=== PATIENT | male | born 1960 | race Caucasian/White ===

== ENCOUNTER → 2019-11-23 09:33 | Outpatient (BNVA) | payer MEDICARE, MEDICAID, SELFPAY | PROVIDERS: Family Provider Internal Medicine; Visit Provider Nurse Practitioner Psychiatric/Mental Health | DX: G30.9 Alzheimer's disease, unspecified (principal); F02.81 Dementia in other diseases classified elsewhere, unspecified severity, with behavioral disturbance; F33.1 Major depressive disorder, recurrent, moderate | CPT/HCPCS: 99214 ==

== ENCOUNTER → 2020-03-27 07:38 | Outpatient (BNVA) | payer MEDICARE, MEDICAID, SELFPAY | PROVIDERS: Family Provider Internal Medicine; Visit Provider Nurse Practitioner Psychiatric/Mental Health | DX: F33.1 Major depressive disorder, recurrent, moderate (principal); G30.9 Alzheimer's disease, unspecified; F02.81 Dementia in other diseases classified elsewhere, unspecified severity, with behavioral disturbance | CPT/HCPCS: 99214 ==

== ENCOUNTER → 2020-05-02 08:28 | Outpatient (BNVA) | payer MEDICAID, SELFPAY | PROVIDERS: Family Provider Internal Medicine; Visit Provider Nurse Practitioner Psychiatric/Mental Health | DX: F02.81 Dementia in other diseases classified elsewhere, unspecified severity, with behavioral disturbance (principal); F33.1 Major depressive disorder, recurrent, moderate; G30.9 Alzheimer's disease, unspecified | CPT/HCPCS: 99214 ==

== ENCOUNTER 2020-05-20 18:20 | Inpatient (IN) | payer MEDICARE, MEDICAID, SELFPAY ==
[2020-05-20 18:24] VITALS: BP 137/87; PULSE 86; RESP 20; TEMP 36.8; O2SAT 98; BMI 34.4
[2020-05-20 19:42] LABS: Basophils # 0.1 10^3/uL (0.0-0.1); Basophils % 0.6 %; Eosinophils # 0.3 10^3/uL (0.0-0.8); Eosinophils % 2.1 %; Hematocrit 47.9 % (42.0-52.0); Hemoglobin 15.6 g/dL (11.7-16.6); Lymphocytes # 2.2 10^3/uL (0.8-4.8); Lymphocytes % 18.3 %; Mean Corpuscular HGB Conc 32.6 g/dL (30.0-36.0); Mean Corpuscular Hemoglobin 32.2 pg (28.0-34.0); Mean Platelet Volume 8.7 fL (7.4-10.4); Monocytes # 0.9 10^3/uL (0.2-0.9); Monocytes % 7.5 %; Neutrophils % 69.8 %; Nucleated Red Blood Cells % 0 %; Platelet Count 347 10^3/cmm (130-400); Red Blood Count 4.84 10^6/uL (4.1-5.3); Red Cell Distribution Width 13.5 % (12.1-15.1); White Blood Count 12.2 10^3/uL (4.0-10.0)
[2020-05-20 20:10] LABS: Alanine Aminotransferase 36 U/L (0-41); Albumin Level 3.9 g/dL (3.5-5.2); Alkaline Phosphatase 83 IU/L (40-130); Anion Gap 13.3 (5-19); Aspartate Amino Transferase 23 U/L (0-40); Blood Urea Nitrogen 17 mg/dL (8-23); Calcium 9.5 mg/dL (8.5-10.5); Carbon Dioxide 29 mmol/L (22-29); Chloride 100 mmol/L (98-107); Creatinine Clr Calc Pharmacy 71.8394; Globulin 3.8 g/dL (1.3-4.6); Glomerular Filtration Rate 61.3 mL/min (90-130); Glucose 109 mg/dL (65-115); Osmolality Calculated 283 mOsm/kg (285-295); Potassium 4.3 mmol/L (3.5-5.1); Sodium 138 mmol/L (136-145); Thyroid Stimulating Hormone 1.17 uIU/mL (0.27-4.20); Total Bilirubin 0.3 mg/dL (0.15-1.2); Total Protein 7.7 g/dL (6.6-8.7)
[2020-05-20 20:12] LABS: Acetaminophen < 5.0 ug/mL (10-30); Alcohol Level < 10 mg/dL (0-10); Salicylate < 0.3 mg/dL (3-10)
[2020-05-20 20:33] LABS: Amphetamines Screen Urine Negative (Negative); Barbiturates Screen Urine Negative (Negative); Benzodiazepines Screen Urine Positive (Negative); Cocaine Screen Urine Negative (Negative); Opiate Screen Urine Negative (Negative); PCP Screen Urine Negative (Negative); THC Screen Urine Negative (Negative)
[2020-05-20 20:35] LABS: Add Urine Microscopic? YES; Bilirubin Urine 1+ (NEGATIVE); Blood Urine Neg (Negative); Glucose Urine UA Norm (Normal); Ketones Urine Negative (Negative); Leukocyte Esterase Urine Trace (Negative); Nitrate Urine Negative (Negative); Protein Urine Neg (Negative); Urine Appearance Clear (CLEAR); Urine Color Yellow (Yellow); Urobilinogen Urine Norm (Negative); pH Urine 5 (5-7)
[2020-05-20 20:36] LABS: Add Urine Culture? No; Bacteria Urine TRACE; Hyaline Casts Urine 0-4; Mucus Urine TRACE; RBC Urine 0-4 /hpf (0-2); Squamous Epithelial Cell Urine 0-4 (0-5)
[2020-05-20] MEDS: LORazepam 2 mg Tablet PO (22:05)
[2020-05-20 22:54] VITALS: BP 136/72; PULSE 82; RESP 18; O2SAT 97
[2020-05-20 23:08] VITALS: BP 154/102; PULSE 75; RESP 21; TEMP 37; O2SAT 99
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
[2020-05-21] MEDS: lamoTRIgine 100 mg Tablet 200 MG PO ×2 (00:13→20:55)
[2020-05-21] MEDS: metoprolol tartrate 50 mg Tablet PO ×2 (00:14→20:55)
[2020-05-21] MEDS: OLANZapine 5 mg ODT PO (02:36)
--- NOTE | 2020-05-21 02:38 | PC.NURSE ---
Addendum entered by Claudia Shepard LPN 05/21/20 03:26: PRN ZYPREXA ZYDIS PT STATES MEDICATION WAS NOT EFFECTIVE. WILL CONTINUE TO MONITOR PATIENT. Original Note: PRN ZYPREXA ZYDIS ADMINISTERED ZYPREXA ZYDIS 5MG SUBLINGUAL FOR INCREASING AGITATION/ANXIETY. WILL MONITOR FOR MEDICATION EFFECTIVENESS.
[2020-05-21 06:18] VITALS: BP 108/72; PULSE 65; RESP 20; TEMP 36.5; O2SAT 99
[2020-05-21] MEDS: lisinopril 20 mg Tablet PO (08:28)
[2020-05-21] MEDS: calcium carbonate 500 mg Chew Tablet PO (08:28)
[2020-05-21] MEDS: hydroCHLOROthiazide 25 mg Tablet 12.5 MG PO (08:28)
[2020-05-21] MEDS: docusate sodium 100 mg Capsule PO (08:28)
[2020-05-21] MEDS: donepezil 5 MG Tablet PO (08:29)
[2020-05-21] MEDS: pantoprazole DR 40 mg Tablet PO (08:29)
[2020-05-21] MEDS: buPROPion XL (24 HR) 300 mg Tablet PO (08:29)
[2020-05-21] MEDS: cholecalciferol (vitamin D3) 1,000 unit Tablet 2000 UNIT PO (08:29)
[2020-05-21] MEDS: memantine 5 mg tablet 10 MG PO ×2 (08:29→16:54)
[2020-05-21] MEDS: lamoTRIgine 100 mg Tablet 150 MG PO (08:29)
[2020-05-21 09:49] VITALS: PULSE 74; O2SAT 97
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
[2020-05-21 14:00] VITALS: BP 115/68; PULSE 71; RESP 18; TEMP 37.2
[2020-05-21] MEDS: SUMAtriptan 25 mg Tablet 50 MG PO (18:43)
[2020-05-21 22:00] VITALS: BP 121/71; PULSE 70; RESP 18; TEMP 36.7; O2SAT 100
[2020-05-22 06:00] VITALS: BP 110/65; PULSE 65; RESP 16; TEMP 36.6; O2SAT 99
[2020-05-22 07:52] VITALS: PULSE 68; O2SAT 98
[2020-05-22] MEDS: memantine 5 mg tablet 10 MG PO ×2 (09:22→17:11)
[2020-05-22] MEDS: buPROPion XL (24 HR) 300 mg Tablet PO (09:23)
[2020-05-22] MEDS: lamoTRIgine 100 mg Tablet 150 MG PO (09:23)
[2020-05-22] MEDS: pantoprazole DR 40 mg Tablet PO (09:23)
[2020-05-22] MEDS: docusate sodium 100 mg Capsule PO (09:23)
[2020-05-22] MEDS: donepezil 5 MG Tablet PO (09:23)
[2020-05-22] MEDS: lisinopril 20 mg Tablet PO (09:23)
[2020-05-22] MEDS: cholecalciferol (vitamin D3) 1,000 unit Tablet 2000 UNIT PO (09:24)
[2020-05-22] MEDS: hydroCHLOROthiazide 25 mg Tablet 12.5 MG PO (09:24)
[2020-05-22] MEDS: nicotine 21 mg Patch 1 PATCH TRANSDERMA (09:24)
[2020-05-22 14:00] VITALS: BP 103/67; PULSE 80; RESP 20; TEMP 37.3; O2SAT 98
--- NOTE | 2020-05-22 15:56 | P.PN_ITS ---
Subjective NPU Subjective: Interval history: The patient's mood is improved today. He and his may effectuate a rapprochement, at the worst, a detente such as that extant between [place] and [facility]. He rambles on, unable to remember my name or that of the hospital. His mood is upbeat and he is neither suicidal nor homicidal. He ponders when he will be ready to face the slings and arrows of outrageous fortune which await him at home. Medications: Reviewed: Yes Medication Review Details: Current Medications Acetaminophen (Tylenol) 650 mg PO Q4H PRN PRN Reason: MILD PAIN Albuterol Sulfate (Ventolin) 2 puff INHALATION Q6H PRN PRN Reason: Wheezing Alprazolam (Xanax) 1 mg PO TID [facility] Last Admin: 05/22/20 14:52 Dose: 1 mg Documented by: Benztropine Mesylate (Cogentin) 1 mg PO BID PRN PRN Reason: Mild Extrapyramidal symptoms Bupropion HCl (Wellbutrin Xl (24 Hr)) 300 mg PO DAILY [facility] Last Admin: 05/22/20 09:23 Dose: 300 mg Documented by: Calcium Carbonate (Tums) 500 mg PO DAILY [facility] Last Admin: 05/22/20 09:35 Dose: Not Given Documented by: Camphor/Menthol/Phenol (Blistex) 1 applic TOPICAL Q1H PRN PRN Reason: DRYNESS Diphenhydramine HCl (Benadryl) 50 mg IM ONCE PRN PRN Reason: Severe Extrapyramidal Symptoms Diphenhydramine HCl (Benadryl) 50 mg IM Q4H PRN PRN Reason: Severe Aggression Docusate Sodium (Colace) 100 mg PO DAILY [facility] Last Admin: 05/22/20 09:23 Dose: 100 mg Documented by: Donepezil HCl (Aricept) 5 mg PO DAILY [facility] Last Admin: 05/22/20 09:23 Dose: 5 mg Documented by: Haloperidol (Haldol) 5 mg PO Q4H PRN PRN Reason: AGITATION Haloperidol Lactate (Haldol Inj) 5 mg IM Q4H PRN PRN Reason: Severe Aggression Hydrochlorothiazide (Hctz) 12.5 mg PO DAILY [facility] Last Admin: 05/22/20 09:24 Dose: 12.5 mg Documented by: Hydroxyzine Pamoate (Vistaril) 50 mg PO Q6H PRN PRN Reason: ANXIETY Lamotrigine (Lamictal) 150 mg PO DAILY [facility] Last Admin: 05/22/20 09:23 Dose: 150 mg Documented by: Lamotrigine (Lamictal) 200 mg PO BEDTIME [facility] Last Admin: 05/21/20 20:55 Dose: 200 mg Documented by: Lisinopril (Prinivil) 20 mg PO DAILY [facility] Last Admin: 05/22/20 09:23 Dose: 20 mg Documented by: Loperamide HCl (Imodium Capsule) 2 mg PO Q6H PRN PRN Reason: DIARRHEA Lorazepam (Ativan) 2 mg IM Q4H PRN PRN Reason: Severe Aggression Memantine (Namenda) 10 mg PO BID [facility] Last Admin: 05/22/20 09:22 Dose: 10 mg Documented by: Metoprolol Tartrate (Lopressor) 50 mg PO BEDTIME [facility] Last Admin: 05/21/20 20:55 Dose: 50 mg Documented by: Nicotine (Nicoderm 21 Mg Patch) 1 patch TRANSDERMA DAILY PRN PRN Reason: NICOTINE WITHDRAWAL Last Admin: 05/22/20 09:24 Dose: 1 patch Documented by: Nicotine Polacrilex (Nicorette) 2 mg BUCCAL Q2H PRN PRN Reason: NICOTINE WITHDRAWAL Non-Formulary Medication (Nxhghtktlfx-Jdgjwhngm-Abhcsquz [Trelegy Ellipta]) 1 inh INHALATION DAILY [facility] Last Admin: 05/22/20 09:36 Dose: Not Given Documented by: Non-Formulary Medication (Zaleplon) 20 mg PO .QHS [facility] Olanzapine (Zyprexa Zydis) 5 mg PO Q4H PRN PRN Reason: Agitation/Psychosis Last Admin: 05/21/20 02:36 Dose: 5 mg Documented by: Ondansetron HCl (Zofran) 4 mg PO Q6H PRN PRN Reason: NAUSEA AND VOMITING Pantoprazole Sodium (Protonix) 40 mg PO DAILY [facility] Last Admin: 05/22/20 09:23 Dose: 40 mg Documented by: Rivastigmine Tartrate (Exelon 9.5 Mg Patch) 1 patch TRANSDERMA DAILY [facility] Last Admin: 05/22/20 09:24 Dose: 1 patch Documented by: Sumatriptan Succinate (Imitrex) 50 mg PO Q2H PRN PRN Reason: Migraine Headache Last Admin: 05/21/20 18:43 Dose: 50 mg Documented by: Trazodone HCl (Desyrel) 50 mg PO BEDTIME PRN PRN Reason: SLEEP Vitamin D (Vitamin D3) 2,000 unit PO DAILY [facility] Last Admin: 05/22/20 09:24 Dose: 2,000 unit Documented by: Mental Status Exam MSE Comments: This is a 60-year-old male who presents at his stated age. He is neat clean and of good body habitus. Mood is much more comfortable and cheerful and affect is appropriate. Thought processes tend to be somewhat confabulatory. The patient frankly admits he cannot remember things over a long period of time. He still cannot remember things (e. g., [facility], [facility], etc.) over a short period of time. Serial sevens remain out of the question. The patient still does not have sufficient insight and judgment for safety at the moment. He is currently on one-to-one because he is an oxygen line for his COPD. The patient denies suicidal or homicidal ideation, plan or intent. He agrees that the firearms need to leave the house. His son, dock guard, will assume responsibility for this. It might be a good thing to have the son assume guardianship of his father. Vitals/I&O/Wt Last Vital Signs Temp 99.1 F 05/22/20 14:00 Pulse 80 05/22/20 14:00 Resp 20 H 05/22/20 14:00 BP 103/67 05/22/20 14:00 Pulse Ox 98 05/22/20 14:00 Weight last 48 hrs Weight 196 lb 14.4 oz Weight 220 lb Data NPU : 05/20/20 19:37 05/20/20 19:37 Involuntary Hold Information 96 Hour Hold: 96 Hour Hold Start Date: 05/20/20 96 Hour Hold Start Time: 20:25 96 Hour Hold Ending Date: 05/29/20 96 Hour Hold Ending Time: 00:01 Attestations NPU Medical Necessity Statement*: I anticipate 5-7 midnights additional hospital stay. Time Spent in Patient Care: 16 - 35 minutes (>than 50% of time spent in counselling and/or direct pt care on unit) . Coding Level of Care Code Acute Public Health Social Worker for Chg Fwd
[2020-05-22] MEDS: lamoTRIgine 100 mg Tablet 200 MG PO (20:28)
[2020-05-22] MEDS: metoprolol tartrate 50 mg Tablet PO (20:29)
[2020-05-22 21:03] VITALS: BP 122/75; PULSE 92; RESP 17; TEMP 36.9; O2SAT 97
[2020-05-23] MEDS: SUMAtriptan 25 mg Tablet 50 MG PO ×2 (01:30→15:38)
[2020-05-23] MEDS: hyDROXYzine 25 mg Capsule 50 MG PO ×2 (01:30→21:37)
[2020-05-23] MEDS: trazodone 50 mg Tablet PO ×2 (01:31→21:38)
[2020-05-23 06:00] VITALS: BP 103/58; PULSE 69; RESP 14; TEMP 36.2; O2SAT 99
[2020-05-23 09:38] VITALS: PULSE 85; O2SAT 98
[2020-05-23] MEDS: docusate sodium 100 mg Capsule PO (09:48)
[2020-05-23] MEDS: memantine 5 mg tablet 10 MG PO ×2 (09:48→17:45)
[2020-05-23] MEDS: cholecalciferol (vitamin D3) 1,000 unit Tablet 2000 UNIT PO (09:48)
[2020-05-23] MEDS: buPROPion XL (24 HR) 300 mg Tablet PO (09:48)
[2020-05-23] MEDS: lamoTRIgine 100 mg Tablet 150 MG PO (09:49)
[2020-05-23] MEDS: hydroCHLOROthiazide 25 mg Tablet 12.5 MG PO (09:49)
[2020-05-23] MEDS: pantoprazole DR 40 mg Tablet PO (09:49)
[2020-05-23] MEDS: donepezil 5 MG Tablet PO (09:49)
[2020-05-23] MEDS: lisinopril 20 mg Tablet PO (09:49)
[2020-05-23 13:52] VITALS: BP 91/54; PULSE 72; RESP 18; TEMP 36.7; O2SAT 99
[2020-05-23 20:39] VITALS: PULSE 80; O2SAT 97
[2020-05-23 21:13] VITALS: BP 93/65; PULSE 82; RESP 20; TEMP 36.7; O2SAT 99
[2020-05-23] MEDS: lamoTRIgine 100 mg Tablet 200 MG PO (21:37)
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
[2020-05-23] MEDS: metoprolol tartrate 50 mg Tablet PO (21:38)
--- NOTE | 2020-05-23 21:38 | PC.NURSE ---
Continuous oxygen at 3 liter per nasal cannula.
[2020-05-24 06:00] VITALS: BP 112/68; PULSE 70; RESP 18; TEMP 36.8; O2SAT 96
[2020-05-24] MEDS: cholecalciferol (vitamin D3) 1,000 unit Tablet 2000 UNIT PO (09:00)
[2020-05-24] MEDS: docusate sodium 100 mg Capsule PO (09:01)
[2020-05-24] MEDS: buPROPion XL (24 HR) 300 mg Tablet PO (09:02)
[2020-05-24] MEDS: lisinopril 20 mg Tablet PO (09:02)
[2020-05-24] MEDS: pantoprazole DR 40 mg Tablet PO (09:02)
[2020-05-24] MEDS: hydroCHLOROthiazide 25 mg Tablet 12.5 MG PO (09:02)
[2020-05-24] MEDS: memantine 5 mg tablet 10 MG PO ×2 (09:03→18:08)
[2020-05-24] MEDS: lamoTRIgine 100 mg Tablet 150 MG PO (09:03)
[2020-05-24] MEDS: donepezil 5 MG Tablet PO (09:03)
[2020-05-24 10:26] VITALS: PULSE 87; O2SAT 96
[2020-05-24 14:00] VITALS: BP 85/57; PULSE 84; RESP 18; TEMP 37; O2SAT 97
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
[2020-05-24 20:04] VITALS: BP 89/58; PULSE 88; RESP 14; TEMP 36.7; O2SAT 94
[2020-05-24 20:05] VITALS: PULSE 82; O2SAT 97
[2020-05-24] MEDS: lamoTRIgine 100 mg Tablet 200 MG PO (22:07)
[2020-05-24] MEDS: hyDROXYzine 25 mg Capsule 50 MG PO (22:07)
[2020-05-25] MEDS: acetaminophen 325 mg Tablet 650 MG PO (04:54)
[2020-05-25] MEDS: OLANZapine 5 mg ODT PO (04:58)
[2020-05-25] MEDS: hyDROXYzine 25 mg Capsule 50 MG PO ×2 (04:58→22:21)
[2020-05-25 06:00] VITALS: BP 100/62; PULSE 73; RESP 15; TEMP 36.5; O2SAT 95
[2020-05-25] MEDS: buPROPion XL (24 HR) 300 mg Tablet PO (08:06)
[2020-05-25] MEDS: docusate sodium 100 mg Capsule PO (08:06)
[2020-05-25] MEDS: donepezil 5 MG Tablet PO (08:06)
[2020-05-25] MEDS: cholecalciferol (vitamin D3) 1,000 unit Tablet 2000 UNIT PO (08:06)
[2020-05-25] MEDS: calcium carbonate 500 mg Chew Tablet PO (08:06)
[2020-05-25] MEDS: pantoprazole DR 40 mg Tablet PO (08:06)
[2020-05-25] MEDS: lisinopril 20 mg Tablet PO (08:07)
[2020-05-25] MEDS: lamoTRIgine 100 mg Tablet 150 MG PO (08:07)
[2020-05-25] MEDS: memantine 5 mg tablet 10 MG PO ×2 (08:07→17:00)
[2020-05-25] MEDS: hydroCHLOROthiazide 25 mg Tablet 12.5 MG PO (08:07)
--- NOTE | 2020-05-25 08:12 | PC.NURSE ---
refused scheduled Tums, says I don't take that
[2020-05-25 09:41] VITALS: PULSE 85; O2SAT 99
--- NOTE | 2020-05-25 13:10 | PC.RESP ---
Smoking Cessation information and a schedule of classes to patient.
[2020-05-25 14:00] VITALS: BP 100/66; PULSE 95; RESP 18; TEMP 36.7; O2SAT 98
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
[2020-05-25] MEDS: lamoTRIgine 100 mg Tablet 200 MG PO (20:29)
[2020-05-25] MEDS: metoprolol tartrate 50 mg Tablet PO (20:29)
[2020-05-25 22:00] VITALS: BP 109/72; PULSE 93; RESP 18; TEMP 36.3; O2SAT 99
--- NOTE | 2020-05-25 22:23 | PC.NURSE ---
Visteril 50mg PO given for anxiety Pt is upset that his xanax was discontinued and that his ativan was not ordered any more.
[2020-05-26 02:19] VITALS: PULSE 88; O2SAT 98
[2020-05-26 06:00] VITALS: BP 100/77; PULSE 70; RESP 19; TEMP 36.9; O2SAT 98
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
[2020-05-26] MEDS: docusate sodium 100 mg Capsule PO (08:25)
[2020-05-26] MEDS: cholecalciferol (vitamin D3) 1,000 unit Tablet 2000 UNIT PO (08:26)
[2020-05-26] MEDS: memantine 5 mg tablet 10 MG PO (08:26)
[2020-05-26] MEDS: pantoprazole DR 40 mg Tablet PO (08:26)
[2020-05-26] MEDS: buPROPion XL (24 HR) 300 mg Tablet PO (08:26)
[2020-05-26] MEDS: lisinopril 20 mg Tablet PO (08:26)
[2020-05-26] MEDS: lamoTRIgine 100 mg Tablet 150 MG PO (08:27)
[2020-05-26] MEDS: hydroCHLOROthiazide 25 mg Tablet 12.5 MG PO (08:27)
[2020-05-26] MEDS: donepezil 5 MG Tablet PO (08:27)
[2020-05-26 09:23] VITALS: BP 100/77; PULSE 70; RESP 19; TEMP 36.9; O2SAT 98
[2020-05-26] MEDS: hyDROXYzine 25 mg Capsule 50 MG PO (11:03)
--- NOTE | 2020-05-26 11:04 | PC.NURSE ---
PRN VISTARIL 50 MG GIVEN PO PER PT C/O STATED ANXIETY. PT UPSET THAT PHYSICIAN DISCONTINUED HIS XANAX, HAS MILD TREMORS NOTED TO BILATERAL UPPER EXTREMITIES. RAPID PRESSURED SPEECH NOTED. WILL CONT TO MONITOR FOR DESIRED MED EFFECTIVENESS.
== END 2020-05-26 12:57 | disposition home or self-care (01) | DRG 885 ==
LOC: ER 18:43 → NP 22:42
PROVIDERS: Admitting Provider Psychiatry & Neurology Psychiatry; Emergency Provider Family Medicine; PCP Internal Medicine; Visit Provider Psychiatry & Neurology Psychiatry
DX: F33.1 Major depressive disorder, recurrent, moderate (principal); R45.851 Suicidal ideations; F02.81 Dementia in other diseases classified elsewhere, unspecified severity, with behavioral disturbance; G30.9 Alzheimer's disease, unspecified; F17.210 Nicotine dependence, cigarettes, uncomplicated; Z79.82 Long term (current) use of aspirin
CPT/HCPCS: 12345; 36415; 80053; 80306; 80307; 81001; 84443; 85025; 99284

== ENCOUNTER → 2020-06-15 08:11 | Outpatient (BNVA) | payer MEDICARE, MEDICAID, SELFPAY | PROVIDERS: PCP Internal Medicine; Visit Provider Nurse Practitioner Psychiatric/Mental Health | DX: F33.1 Major depressive disorder, recurrent, moderate (principal); G30.9 Alzheimer's disease, unspecified; F02.81 Dementia in other diseases classified elsewhere, unspecified severity, with behavioral disturbance; F41.1 Generalized anxiety disorder | CPT/HCPCS: 99214 ==

== ENCOUNTER → 2020-07-27 08:08 | Outpatient (BNVA) | payer MEDICARE, MEDICAID, SELFPAY | PROVIDERS: PCP Internal Medicine; Visit Provider Nurse Practitioner Psychiatric/Mental Health | DX: F33.1 Major depressive disorder, recurrent, moderate (principal); G30.9 Alzheimer's disease, unspecified; F02.81 Dementia in other diseases classified elsewhere, unspecified severity, with behavioral disturbance | CPT/HCPCS: 99214 ==

== ENCOUNTER → 2020-09-04 07:27 | Outpatient (BNVA) | payer MEDICARE, MEDICAID, SELFPAY | PROVIDERS: PCP Internal Medicine; Visit Provider Nurse Practitioner Psychiatric/Mental Health | DX: F33.1 Major depressive disorder, recurrent, moderate (principal); G30.9 Alzheimer's disease, unspecified; F02.81 Dementia in other diseases classified elsewhere, unspecified severity, with behavioral disturbance | CPT/HCPCS: 99214 ==

== ENCOUNTER → 2020-10-26 07:33 | Outpatient (BNVA) | payer MEDICARE, MEDICAID, SELFPAY | PROVIDERS: PCP Internal Medicine; Visit Provider Nurse Practitioner Psychiatric/Mental Health | DX: F33.1 Major depressive disorder, recurrent, moderate (principal); Z79.899 Other long term (current) drug therapy; G30.9 Alzheimer's disease, unspecified; F02.81 Dementia in other diseases classified elsewhere, unspecified severity, with behavioral disturbance | CPT/HCPCS: 99214 ==

== ENCOUNTER 2020-11-09 09:16 | Outpatient (CLI) | payer MEDICARE, MEDICAID, SELFPAY ==
--- NOTE | 2020-11-09 09:24 | XR_ITS ---
WS: [id number] LATERAL LUMBAR SPINE: 3 view. Lateral radiographs are performed in upright neutral, flexion and extension to the patient's toleranc e. HISTORY: LOW BACK PAIN COMPARISON: None available. Less than 2 mm retrolisthesis of L4 with no movement during flexion or extension. Bones demonstrate d iffuse moderate osteopenia. Facet joint arthritis at L4-5 and L5-S1. Moderate calcified plaque within the visualized aorta. XR/XR lumbar spine f/e only [id number] IMPRESSION: 1. Diffuse osteopenia. 2. No significant instability within the lumbar spine.
--- NOTE | 2020-11-09 09:24 | CT_ITS ---
WS: [id number] CT LUMBAR SPINE, noncontrast. HISTORY: LOW BACK PAIN TECHNIQUE: Contiguous 2.5 mm axial imaging are performed. Sagittal and coronal reformats are submitte d and reviewed. All CT scans at [facility] use at least one of these dose optimization te chniques: automated exposure control; mA and/or kV adjustment per patient size (includes targeted exa ms where dose is matched to clinical indication); or iterative reconstruction. IV contrast: None DLP: 1843.19 mGycm COMPARISON: None available. Mild straightening of the normal lumbar lordosis. 2 mm retrolisthesis of L4. No pars defects or fract ures. Mild diffuse osteopenia. L1-2: Normal. L2-3: Mild annular disc bulging without significant stenosis. Very slight encroachment upon the ventr al thecal sac. L3-4: Mild annular disc bulging with bilateral facet joint arthritis. There is a small amount of air in the LEFT facet joint with mild ligamentum flavum hypertrophy. Mild central and bilateral subarticu lar recess stenosis. L4-5: Moderate annular disc bulging and mild osteophytic ridging. Very mild widening of the facet bernabe nts bilaterally with ligamentum flavum hypertrophy. Moderate central and bilateral subarticular reces s stenosis is multifactorial. Very mild bilateral foraminal stenosis at this level. L5-S1: Broad-based central disc bulging without stenosis. Sclerotic area in the RIGHT L2 transverse process may be a small bone island. Mild degenerative gaitan es at the SI joints, RIGHT greater than LEFT. Mild atherosclerosis aorta with no aneurysm. Moderate sigmoid diverticulosis without acute diverticulitis. CT/CT lumbar spine wo con* [id number] IMPRESSION: 1. Moderate central and bilateral subarticular recess stenosis at L4-5 as desc ribed above. 2. Mild central and bilateral subarticular recess stenosis at L3-4. 3. Sigmoid diverticulosis. 4. No fractures. 5. 2 mm retrolisthesis of L4 contributes to the central and subarticular steno sis at L4-5.
== END 2020-11-09 09:17 | disposition home or self-care (01) ==
LOC: RADWPI 09:21
PROVIDERS: PCP Internal Medicine; Visit Provider Nurse Practitioner
DX: M85.88 Other specified disorders of bone density and structure, other site (principal); K57.30 Diverticulosis of large intestine without perforation or abscess without bleeding; M48.061 Spinal stenosis, lumbar region without neurogenic claudication
CPT/HCPCS: 72120; 72131

== ENCOUNTER → 2020-12-28 08:02 | Outpatient (BNVA) | payer MEDICARE, MEDICAID, SELFPAY | PROVIDERS: PCP Internal Medicine; Visit Provider Nurse Practitioner Psychiatric/Mental Health | DX: F33.1 Major depressive disorder, recurrent, moderate (principal); G30.9 Alzheimer's disease, unspecified; F02.81 Dementia in other diseases classified elsewhere, unspecified severity, with behavioral disturbance | CPT/HCPCS: 99214 ==

== ENCOUNTER → 2021-03-15 07:13 | Outpatient (BNVA) | payer MEDICARE, MEDICAID, SELFPAY | PROVIDERS: PCP Internal Medicine; Visit Provider Nurse Practitioner Psychiatric/Mental Health | DX: G30.9 Alzheimer's disease, unspecified (principal); F02.81 Dementia in other diseases classified elsewhere, unspecified severity, with behavioral disturbance; F33.1 Major depressive disorder, recurrent, moderate | CPT/HCPCS: 99214 ==

== ENCOUNTER → 2021-06-11 07:15 | Outpatient (BNVA) | payer MEDICARE, MEDICAID, SELFPAY | PROVIDERS: PCP Internal Medicine; Visit Provider Nurse Practitioner Psychiatric/Mental Health | DX: F33.1 Major depressive disorder, recurrent, moderate (principal); F02.81 Dementia in other diseases classified elsewhere, unspecified severity, with behavioral disturbance; G30.9 Alzheimer's disease, unspecified | CPT/HCPCS: 99214 ==

== ENCOUNTER → 2021-09-10 07:33 | Outpatient (BNVA) | payer MEDICARE, MEDICAID, SELFPAY | PROVIDERS: PCP Internal Medicine; Visit Provider Nurse Practitioner Psychiatric/Mental Health | DX: F33.1 Major depressive disorder, recurrent, moderate (principal); F02.81 Dementia in other diseases classified elsewhere, unspecified severity, with behavioral disturbance; G30.9 Alzheimer's disease, unspecified; F17.210 Nicotine dependence, cigarettes, uncomplicated | CPT/HCPCS: 99214; 99406 ==

== ENCOUNTER → 2021-12-11 07:23 | Outpatient (BNVA) | payer MEDICARE, MEDICAID, SELFPAY | PROVIDERS: PCP Internal Medicine; Visit Provider Nurse Practitioner Psychiatric/Mental Health | DX: F33.1 Major depressive disorder, recurrent, moderate (principal); G30.9 Alzheimer's disease, unspecified; F02.81 Dementia in other diseases classified elsewhere, unspecified severity, with behavioral disturbance | CPT/HCPCS: 99214 ==

== ENCOUNTER → 2022-03-13 07:01 | Outpatient (BNVA) | payer MEDICARE, MEDICAID, SELFPAY | PROVIDERS: PCP Internal Medicine; Visit Provider Nurse Practitioner Psychiatric/Mental Health | DX: F33.1 Major depressive disorder, recurrent, moderate (principal); F02.81 Dementia in other diseases classified elsewhere, unspecified severity, with behavioral disturbance; G30.9 Alzheimer's disease, unspecified | CPT/HCPCS: 99214 ==